=== PATIENT | female | born 1980 | race Caucasian/White ===

== ENCOUNTER 2017-03-16 05:45 | Day surgery (SDC) | payer BC ==
[~2017-03-16] VITALS: Ht 165.1 cm; Wt 63.5 kg
[2017-03-16] MEDS ORDERED: CEFAZOLIN 1 GM IVPB PREMIX 50 ML IV ONE (07:00)
[2017-03-16] MEDS ORDERED: OXYCODONE/ACETAMINOPHEN 5-325 TABLET PO PRN ×2 (10:15)
[2017-03-16] MEDS ORDERED: ONDANSETRON HCL 4 MG/2 ML VIAL IVP PRN (10:15)
[2017-03-16] MEDS ORDERED: HYDROcodone/ACETAMIN 5-325 MG TAB (NORCO/ VICODIN) PO PRN (10:15)
[2017-03-16] MEDS ORDERED: LR 1,000 ML IV SCH (11:03)
[2017-03-16] MEDS ORDERED: HYDROmorphone 2 MG/ML VIAL IVP PRN ×2 (11:15)
[2017-03-16] MEDS ORDERED: MEPERIDINE HCL/PF 25 MG/ML DISP.SYRIN IVP PRN (11:15)
[2017-03-16] MEDS ORDERED: HYDROmorphone 1 MG INJ. 1 MG/ML AMPUL IVP PRN (11:15)
[2017-03-16 11:42] VITALS: BP_SYST 112
[2017-03-16] MEDS ORDERED: SIMETHICONE 80 MG TAB.CHEW PO SCH (13:00)
[2017-03-16] MEDS ORDERED: KETOROLAC TROMETHAMINE 30 MG VIAL IM ONE (13:00)
[2017-03-16] MEDS ORDERED: KETOROLAC TROMETHAMINE 30 MG VIAL ONE (13:19)
[2017-03-16] MEDS ORDERED: HYDROcodone/ACETAMIN 5-325 MG TAB (NORCO/ VICODIN) ONE (15:31)
== END 2017-03-16 16:30 | disposition home or self-care (01) ==
LOC: SDS 05:45 → SMU 05:45 → SDS 16:30
PROVIDERS: ATTEND Specialist
DX: D28.2 Benign neoplasm of uterine tubes and ligaments (principal); Q50.4 Embryonic cyst of fallopian tube
CPT/HCPCS: 58544; 88307; C1727; J0690; J1885; J7120; E0190